=== PATIENT | female | born 1985 | race Caucasian/White ===

== ENCOUNTER → 2019-03-21 | Outpatient (CLI) | payer OTHER | LOC: MC.RAD 08:27 | DX: N63.12 Unspecified lump in the right breast, upper inner quadrant (principal) ==

== ENCOUNTER → 2019-04-08 | Outpatient (CLI) | payer OTHER | LOC: MC.RAD 09:49 | DX: N63.10 Unspecified lump in the right breast, unspecified quadrant (principal) ==

== ENCOUNTER 2020-01-04 08:13 | Inpatient (IN) | payer OTHER ==
[2020-01-04] VITALS (38 sets, daily range): BP systolic 108–142; BP diastolic 58–86; PULSE 48–71; TEMP 98–98.3
[~2020-01-04] VITALS: Ht 162.6 cm; Wt 61.4 kg
--- NOTE | 2020-01-04 09:50 | NUR ---
PATIENT TO LR6 FOR INDUCTION. PATIENT CHANGED INTO GOWN, ON EFM, VITALS OBTAINED, ASSESMENT COMPLETE, IV STARTED, CONSENTS SIGEND. PATIENT HERE WITH AT BEDSIDE. PATIENT DENIES CONTRACTIONS, BLEEDING OR LEAKING OF FLUID
[2020-01-04 10:36] LABS: BASO % 0.3 % (0.0-2.0); EOS # 0.1 (0.0-0.7); EOS % 0.8 % (0-4.0); GRAN # 5.5 (1.4-6.5); GRAN % 69.8 % (42.2-75.2); HEMATOCRIT 37.2 % (37.0-47.0); HEMOGLOBIN 12.9 g/dl (12.5-16.0); LYMPH # 1.8 (1.2-3.4); LYMPH % 22.5 % (20.0-51.0); MEAN CELL VOLUME 90 fl (80.0-100.0); MEAN CORPUSCULAR HEMOGLOBIN 31 pg (27.0-31.0); MEAN CORPUSCULAR HGB CONC 35 g/dl (33.0-37.0); MEAN PLATELET VOLUME 12.2 fl (7.4-10.4); MONO # 0.5 (0.1-0.6); MONO % 6.2 % (1.7-9.3); PLATELET COUNT 186 K/mm3 (130-400); RED BLOOD COUNT 4.13 M/mm3 (4.10-5.30); REDCELL DISTRIBUTION WIDTH-CV 13.6 % (11.5-14.5)
[2020-01-04] MEDS ORDERED: PRENATAL (12:08)
--- NOTE | 2020-01-04 18:30 | NUR ---
1830 ZOFRAN 4MG IVP FOR C/O NAUSEA. TURNED TO LEFT LATERAL FOR POSITION CHANGE.
--- NOTE | 2020-01-04 18:35 | NUR ---
183 FHT BASELINE 130 WITH DECREASE TO 80'S BETWEEN CONTRACTIONS. SVE 3/90/0. TO LEFT SIDE WITH NO RESOLVE. 1839 PIT OFF. TURNED TO RIGHT SIDE. DR WALKER NOTIFIED OF DECELS AND SVE AND PIT OFF. DECELS RESOLVING NOW. FHTS BASELINE 150'S WITH DECREASED VARIABLITY. RESTING ON RIGHT SIDE. IV BOLUS GIVEN.
--- NOTE | 2020-01-04 19:15 | NUR ---
1915 TURNED FROM RIGHT LATERAL TO LEFT LATERAL FOR POSITION CHANGE. FHT BASELINE 120'S WITH IMMEDIATE DECEL TO 90'S AFTER POSITION CHANGE. TURNED BACK TO RIGHT LATERAL WITH IMMEDIATE RETURN TO BASELINE.
--- NOTE | 2020-01-04 19:28 | NUR ---
1927 PITOCIN RESTARTED AT 2MU/MIN. 1934 DR WALKER HERE. SVE /0. SAT UP IN HIGH FOWLERS. VERY COMFORTABLE.
--- NOTE | 2020-01-04 20:30 | NUR ---
2029 COMPLETE DILITATION. INSTRUCTED TO PUSH WITH CONTRACTIONS. 2034 DR WALKER CALLED IN FOR UPDATE AND REPORT GIVEN PT COMPLETE AND BEGINNING TO PUSH.
--- NOTE | 2020-01-04 21:04 | NUR ---
2103 DR WALKER CALLED TO COME TO DELIVERY. READIED FOR DEL. OPEN MOUTH GENTLE PUSHES WITH CONTRACTIONS.
--- NOTE | 2020-01-04 21:15 | NUR ---
2114 DR WALKER HERE. 2119 DELIVERY VIABLE MALE OVER 2ND DEGREE LAC WITH 5//9 APGARS. IV CONTS TO INFUSE.
--- NOTE | 2020-01-04 23:25 | NUR ---
2055 IV TO INT. EPID CATH DC'D. UP TO BR WITH ASSIST. UNABLE TO VOID. PERICARE DONE. TO 214 PER W/C. JUSTIN WELL. ICE TO PERINEUM.
[2020-01-05 01:30] VITALS: BP 139/81; PULSE 57; TEMP 98.4
[2020-01-05 05:00] VITALS: BP 113/78; PULSE 56; TEMP 97.9
[2020-01-05 07:20] VITALS: BP 114/71; PULSE 68; TEMP 97.7
[2020-01-05 17:25] VITALS: BP 123/7; PULSE 68; TEMP 97.8
[2020-01-05 19:30] VITALS: BP 118/71; PULSE 69; TEMP 98.6
[2020-01-06] MEDS ORDERED: PERCOCET 325 MG1 TA2 PO (11:08)
[2020-01-06] MEDS ORDERED: IBU800 M1 PO (11:08)
== END 2020-01-06 11:40 | disposition home or self-care (01) | DRG 807 ==
LOC: OB 08:13 → LDR 10:08 → OB 10:08
PROVIDERS: ADMIT Student in an Organized Health Care Education/Training Program
PROC: 10E0XZZ Delivery of Products of Conception, External Approach (ICD-10-PCS; principal; 2020-01-04)
PROC: 0KQM0ZZ Repair Perineum Muscle, Open Approach (ICD-10-PCS; 2020-01-04)
PROC: 10907ZC Drainage of Amniotic Fluid, Therapeutic from Products of Conception, Via Natural or Artificial Opening (ICD-10-PCS; 2020-01-04)
PROC: 3E033VJ Introduction of Other Hormone into Peripheral Vein, Percutaneous Approach (ICD-10-PCS; 2020-01-04)
PROC: 3E0P7VZ Introduction of Hormone into Female Reproductive, Via Natural or Artificial Opening (ICD-10-PCS; 2020-01-04)
DX: O40.3XX0 Polyhydramnios, third trimester, not applicable or unspecified (principal); Z37.0 Single live birth; O26.893 Other specified pregnancy related conditions, third trimester; O69.89X0 Labor and delivery complicated by other cord complications, not applicable or unspecified; O70.1 Second degree perineal laceration during delivery; O36.5930 Maternal care for other known or suspected poor fetal growth, third trimester, not applicable or unspecified; Z3A.39 39 weeks gestation of pregnancy; Z67.91 Unspecified blood type, Rh negative
CPT/HCPCS: J0595; J2405; J2590; J7120

== ENCOUNTER → 2020-01-07 | Outpatient (CLI) | payer OTHER ==
[~2020-01-07] MED LIST: IBU800 M1 PO; PERCOCET 325 MG1 TA2 PO; PRENATAL
--- NOTE | 2020-01-07 13:04 | NUR ---
Pt, Caro Arevalo, presents with 3 day old baby boy, Jerome Arevalo, and her spouse Waldemar, for an outpatient consult as Jerome had feeding difficulties last noc and needed supplementing. Jerome was born on 01/04/2018 and weighed 6#11.2oz (3040 gms). He had a brief stay in the NICU for low blood gulcose but nursed well through that. Jerome was discharged yesterday and weighed 6#6oz (2880 gms). Today his weight is 6#1.9oz (2776 gms). He has had adquate voids and stools thus far. He was supplemented 20-30ml x4 feedings in the noc because he was not nursing well, but not content either. After approx 10 min per breast Jerome had a weight gain of 2gms. Jerome latches easily but get passive without milk flow. Pt's breast are just starting to make changes, so anticpate volume in the next 24-48 hours that will make easier. Family is receptive to SNS, equipment provided with instruction, assistance for use and cleaning. Jerome latches easily, takes a total of 23ml formula and has an addition 3ml breastmilk. Total intake is 28ml per post feed weight. POC: continue q 2-3 hours with use of SNS. Offer 24-36ml per feeding. Wean volume of supplement as milk supply builds. F/U: Dr. Avila tomorrow (01/08/20 @ 1330) for first well baby exam and with this LC as needed for guidance. Questions invited and answered.
== END ==
LOC: LAC 09:55
DX: Z39.1 Encounter for care and examination of lactating mother (principal); Z71.89 Other specified counseling

== ENCOUNTER → 2020-01-12 | Outpatient (CLI) | payer OTHER ==
--- NOTE | 2020-01-12 13:32 | NUR ---
Pt, Caro Arevalo, presents for follow up consult with eight day old baby boy, Jerome Arevalo and her spouse Waldemar. They were seen five days ago by this LC for concerns. Jerome was born on [birth year] and weighed 6#11.2oz (3039 gms). At our previous visit he weighed 6#1.9oz (2775 gms). He had a transfer of 5ml total from the breast and 23ml via SNS. Pt's milk supply was not yet established at that time. Today Jerome weighs 6#4.9oz (2876 gms), for a 3oz gain in 5 days. Currently Jerome breastfeeds 8x/day and is supplemented 1-1.5oz EBM (collected via Haakaa) and occassionally fomula by bottle after . At this feeding Jerome latches easily, nurses well for a few minutes then his effort slows. Pt stimulates him, compresses the breast and tries to keep him on for 10 min. per side. After bilateral nursing he has a gain of 1.2 oz (34 ml). Pt feeds him the EBM she brought with her 0.9oz per post feed weight and the 0.9oz she collected with the Haakaa during this feeding for a total gain of 3oz. LC evaluates Jerome's suck, he has a steep palate and is content with the finger in shallow, but will allow the finger to advance and continue suckling. This may contribute to lower milk transfer. POC: Pt will discontinue use of Haakaa with feedings to allow more for Jerome to transfer. She will breastfeed, supplement about 2oz by bottle, and then pump after. F/U: After 24 hours using the above plan, pt will report data to this LC and decide adjustments to plan. Questions invited and answered.
== END ==
LOC: LAC 13:08
DX: Z39.1 Encounter for care and examination of lactating mother (principal); Z71.89 Other specified counseling

== ENCOUNTER → 2020-01-15 | Outpatient (CLI) | payer OTHER ==
--- NOTE | 2020-01-15 13:08 | NUR ---
Pt, Caro Arevalo, presents for follow-up consult with 11 day old baby boy, Jerome Arevalo, and her spouse Waldemar. Jerome is being followed for slow weight gain and low milk transfer. Jerome was born on [birth year] and weighed 6#11.2oz (3039 gms). At our consult three days ago he weighed 6#4.9oz (2860 gms) which was a weight gain of 3oz over 5 days. They were advised to increase his supplement to 2oz p and add pumping after vs use of Haakaa with feedings. Today Jerome weighs 6#12.6oz (3080 gms), for a gain of 7.7oz over 3 days. Caro is collecting about 1.75oz with pumping over the last 5 collections. After Jerome has a weight gain of 1.6oz (44 gms). He does tend to loose interest and come off the breast in less than 10 min. Jerome is supplemented about 1.5oz EBM by bottle. Impression: Low milk transfer as evidenced by the increased collections pt is getting with her breast pump. POC: Consider continuation of current feeding plan with breast/bottle 2 oz/pumping at each feeding; reducing the bottle/pumping to every other feeding; continue the current feeding plan but reduce the supplemented volume to 1oz to manuel Cano and see if he will work harder/longer at feedings. Pt and spouse recognize the desire to shift away from the extra work load but to ensure Jerome continues to gain weight and pt continues to improve milk volume. F/U: Dr. Avila on SundayJanuary 20. Possible consult with this LC on SundayJanuary 18 depending on how change in feeding plan works. By telephone or email as needed.
== END ==
LOC: LAC 12:47
DX: Z39.1 Encounter for care and examination of lactating mother (principal); Z71.89 Other specified counseling

== ENCOUNTER → 2021-04-22 | Outpatient (CLI) | payer OTHER | LOC: ZCOL.LAB 04:33 | DX: Z20.822 Contact with and (suspected) exposure to COVID-19 (principal) ==

== ENCOUNTER 2024-04-15 06:21 | Inpatient (IN) | payer OTHER ==
[2024-04-15] VITALS (52 sets, daily range): BP systolic 95–149; BP diastolic 50–96; PULSE 47–82; TEMP 97.4–98.2
[~2024-04-15] VITALS: Ht 161.3 cm; Wt 67.7 kg
[2024-04-15] MEDS ORDERED: LR & Oxytocin 500 ML IV SCH (06:45)
[2024-04-15] MEDS ORDERED: LR 1,000 ML IV SCH (06:45)
--- NOTE | 2024-04-15 07:41 | NUR ---
RN DISCUSSES POC WITH PT AND SPOUSE. PT VERBALIZES UNDERSTANDING AND HAS NO QUESTIONS AT THIS TIME.
--- NOTE | 2024-04-15 07:42 | NUR ---
0654 PT ARRIVES ON UNIT FOR SCHEDULED ELECTIVE INDUCTION OF LABOR. RN ORIENTS PT TO ROOM AND DISCUSSES POC. PT VERBALIZES UNDERSTANDING AND DENIES ANY LOF, DFM, VB, STRONG/REGULAR CTX. PT STATES SHE STARTED HAVING BACK PAIN LAST NIGHT. PT DENIES ANY COMPLICATIONS WITH CURRENT AND PREVIOUS DELIVERIES.
[2024-04-15 07:54] LABS: BASO % 0.1 % (0.0-2.0); EOS # 0.1 K/mm3 (0.0-0.7); EOS % 1.1 % (0.0-4.0); GRAN # 5.7 K/mm3 (1.4-6.5); GRAN % 69.3 % (42.2-75.2); HEMATOCRIT 37.2 % (37.0-47.0); HEMOGLOBIN 12.5 g/dl (12.5-16.0); LYMPH % 23.9 % (20.0-51.0); MEAN CELL VOLUME 92 fl (80.0-100.0); MEAN CORPUSCULAR HEMOGLOBIN 31 pg (27-31); MEAN CORPUSCULAR HGB CONC 34 g/dl (33.0-37.0); MEAN PLATELET VOLUME 11.3 fl (7.4-10.4); MONO # 0.4 K/mm3 (0.1-0.6); MONO % 4.9 % (1.7-9.3); PLATELET COUNT 212 K/mm3 (130-400); RED BLOOD COUNT 4.03 M/mm3 (4.10-5.30); REDCELL DISTRIBUTION WIDTH-CV 14.1 % (11.5-14.5)
--- NOTE | 2024-04-15 09:11 | NUR ---
0910 CALL TO [facility] G[facility]IA FOR EPIDURAL PLACEMENT PER REQUEST BY PT. LAND TITLE EXAMINER UPDATED ON PT HISTORY, INDUCTION, SVE. LAND TITLE EXAMINER STATES SHE WILL BE ON UNIT SHORTLY FOR PLACEMENT.
[2024-04-15] MEDS ORDERED: ROPivacaine PF 0.2% 200 ML IV ONE (09:29)
[2024-04-15] MEDS ORDERED: diphenhydrAMINE 50 MG/ML 1 ML VIAL IV PRN (10:00)
[2024-04-15] MEDS ORDERED: ePHEDrine 50 MG/10 ML VIAL IV PRN (10:00)
[2024-04-15] MEDS ORDERED: Ondansetron 4 MG/2 ML VIAL IV PRN ×2 (10:00→20:45)
[2024-04-15] MEDS ORDERED: diphenhydrAMINE 25 MG CAP PO PRN (10:00)
[2024-04-15] MEDS ORDERED: Naloxone 0.4 MG/ML VIAL IV PRN ×2 (10:00→20:45)
--- NOTE | 2024-04-15 10:23 | NUR ---
PT REQUESTING EPIDURAL AT THIS TIME, PT BREATHING THRU CTX. VENDING MACHINE ASSEMBLER CALLED AND NOTIFIED OF PT REQUEST. IVFB STARTED
--- NOTE | 2024-04-15 10:31 | NUR ---
PT SITTING ON SIDE OF BED FOR EPIDURAL PLACEMENT. RN AND CLIENT BUSINESS MANAGER BEDSIDE. PT TOLERATED PROCEDURE WELL.
--- NOTE | 2024-04-15 12:44 | NUR ---
PT STATES SHE IS DIZZY AND EXPERIENCING NAUSEA. RN TURNS PT TO LEFT SIDE, PROVIDES COLD WASH CLOTH, ASSESSES BP AND FHTs, SVE PERFORMED, ZOFRAN GIVEN. AFTER 2-3 MIN PATIENT STATES SHE IS STARTING TO FEEL BETTER.
--- NOTE | 2024-04-15 16:17 | NUR ---
RN BEDSIDE; POSITION CHANGED. RN REMAINS BEDSIDE DISCUSSING POC AND ASSESSING FHTS
--- NOTE | 2024-04-15 16:19 | NUR ---
RN REMAINS BEDSIDE, SVE PERFORMED. ABDOMEN PALPATED SOFT IN BETWEEN CTX. PITOCIN DECREASED TO 16. RN DISCUSSING INTERVENTIONS WITH PT AND SPOUSE. PT VERBALIZES UNDERSTANDING.
--- NOTE | 2024-04-15 16:45 | NUR ---
RN BEDSIDE ASSESSING FHTS. RN ASSISTS PT WITH POSITION CHANGES. PT STATES SHE FEELS RECTAL PRESSURE WITH CTX.
--- NOTE | 2024-04-15 17:07 | NUR ---
RN BEDSIDE PERFORMING SVE AND ASSISTING PT WITH POSITION CHANGES.
--- NOTE | 2024-04-15 18:05 | NUR ---
RN REMAINS BEDSIDE
--- NOTE | 2024-04-15 18:08 | NUR ---
SVE PERFORMED, POSITION CHANGED, MD BEDSIDE
--- NOTE | 2024-04-15 18:10 | NUR ---
DENISE KWAN BEDSIDE ASSESSING PT. MD AND RN ASSIST PT TO HANDS AND KNEES. RN REMAINS BEDSIDE.
--- NOTE | 2024-04-15 18:34 | NUR ---
DENISE KWAN BEDSIDE, RN X2 REMAIN BEDSIDE.
--- NOTE | 2024-04-15 18:36 | NUR ---
1815 SVE PERFORMED BY DENISE KWAN AND PT REPOSITIONED. PITOCIN OFF PER MD ORDER 181 SCALP ELECTRODE PLACED BY 181 PT MOVED TO RIGHT LATERAL WITH LEG IN STIRRUP. 181 O2 PLACED PER VERBAL ORDER FROM . 1822 MD OUT OF ROOM
[2024-04-15] MEDS ORDERED: Chloroprocaine PF 3% (30 MG/ML) 20 ML VIAL ONE (19:12)
[2024-04-15] MEDS ORDERED: Methylergonovine 0.2 MG/ML 1 ML AMPUL ONE (19:18)
[2024-04-15] MEDS ORDERED: Ondansetron 4 MG/2 ML VIAL ONE (19:21)
[2024-04-15] MEDS ORDERED: Oxytocin 10 UNITS/ML VIAL ONE (19:21)
[2024-04-15] MEDS ORDERED: Phenylephrine 10 MG/ML VIAL ONE (19:21)
--- NOTE | 2024-04-15 19:23 | NUR ---
183- GOODPASTURE AT BEDSIDE. SVE UNCHANGED. PATIENT REPOSITIONED IN [facility]. PITOCIN TURNED BACK ON PER GOODPASTURE. 1853- GOODPASURE AT BEDSIDE. SVE UNCHANGED. PATIENT IN [facility]. PITOCIN INCREASED TO 10 PER GOODPASTURE. 1906- PATIENT REPOSITIONED TO LEFT LATERAL WITH RIGHT LEG IN [facility]. 1909- GOODPASTURE AT BEDSIDE. 1910- PITOCIN TURNED OFF PER GOODPASTURE. SVE UNCHANGED. PATIENT PREPPED FOR . 1921- PATIENT REMOVED FROM MONITORS. TRANSFERRED TO OR VIA HOSPITAL BED.
[2024-04-15] MEDS ORDERED: Ketorolac 30 MG/ML VIAL ONE (19:37)
[2024-04-15] MEDS ORDERED: Tranexamic Acid 1,000 MG/10 ML VIAL ONE (19:39)
[2024-04-15] MEDS ORDERED: oxyCODONE/Acetaminophen 5-325 MG TAB PO PRN (20:45)
[2024-04-15] MEDS ORDERED: Magnes Hydrox (MOM) 80 MG/ML 30 ML CUP PO PRN (20:45)
[2024-04-15] MEDS ORDERED: LR 1,000 ML IV PRN (20:45)
[2024-04-15] MEDS ORDERED: Measles/Mumps/Rubella Virus Vaccine Live w Diluent 0.5 ML VIAL SQ SCH (20:45)
[2024-04-15] MEDS ORDERED: Loratadine 10 MG TAB PO PRN (20:45)
[2024-04-15] MEDS ORDERED: Tdap Vaccine 0.5 ML SYRINGE IM SCH (20:45)
[2024-04-15] MEDS ORDERED: traZODone 50 MG TAB PO PRN (21:00)
[2024-04-15] MEDS ORDERED: Acetaminophen 500 MG TAB PO ONE (22:15)
[2024-04-15] MEDS ORDERED: oxyCODONE 5 MG TAB PO ONE (22:15)
[2024-04-15] MEDS ORDERED: Morphine 4 MG/ML VIAL IV PRN ×2 (22:15→23:15)
[2024-04-16] VITALS: BP 112/74; PULSE 61; TEMP 61
[2024-04-16 02:10] VITALS: BP 121/65; PULSE 63; TEMP 98.1
[2024-04-16] MEDS ORDERED: Ibuprofen 800 MG TAB PO SCH (02:31)
--- NOTE | 2024-04-16 05:00 | NUR ---
0500- PATIENT ABLE TO LIFT BILATERAL LOWER EXTREMITIES. PATIENT SITTING ON EDGE OF BED. EPIDURAL CATHETER REMOVED WITH TIP INTACT. 0510- PATIENT AMBULATORY TO RESTROOM FOLLOWING DELIVERY. CASTILLO CATHETER REMOVED. PERICARE PROVIDED. [facility] GOWN, UNDERWEAR AND PAD APPLIED. 0520- PATIENT AMBULATORY TO BED. PLAN OF CARE EXPLAINED TO PATIENT AND SPOUSE. QUESTIONS INVITED AND ANSWERED.
[2024-04-16 07:00] VITALS: BP 129/86; PULSE 78; TEMP 97.7
[2024-04-16] MEDS ORDERED: Sennosides/Docusate 8.6-50 MG TAB PO SCH (08:00)
--- NOTE | 2024-04-16 09:31 | NUR ---
Initial visit; Mom thanked Clinical Technologist for offering congratulations and God's blessings for the of her son. Clinical Technologist thanked her for choosing [facility].
[2024-04-16 11:25] VITALS: BP 121/69; PULSE 66; TEMP 98.4
[2024-04-16] MEDS ORDERED: oxyCODONE/Acetaminophen 5-325 MG TAB PO PRN (13:45)
[2024-04-16 15:30] VITALS: BP 132/79; PULSE 69; TEMP 97.7
[2024-04-16 20:20] VITALS: BP 126/71; PULSE 78; TEMP 99.5
[2024-04-17 06:37] VITALS: BP 118/70; PULSE 68; TEMP 97.9
[2024-04-17] MEDS ORDERED: PERCOCET 325 MG1 TA2 PO (08:33)
[2024-04-17 16:30] VITALS: BP 133/75; PULSE 79; TEMP 98.6
[2024-04-17 20:10] VITALS: BP 126/74; PULSE 70; TEMP 99.3
[2024-04-17] MEDS ORDERED: Ondansetron 4 MG TAB PO PRN (22:15)
[2024-04-18] MEDS ORDERED: Omeprazole 20 MG **** subs to Pantoprazole 40 MG PO SCH (08:18)
[2024-04-18 08:49] VITALS: BP 120/82; PULSE 80; TEMP 97.9
--- NOTE | 2024-04-18 10:02 | NUR ---
PT GIVEN BOTH WRITTEN AND VERBAL DISCHARGE INSTRUCTIONS. PATIENT EDUCATED ON SIGNS AND SYMPTOMS TO LOOK OUT FOR AND REASONS TO BE SEEN BY A MEDICAL PROFESSIONAL. PT VERBALIZES UNDERSTANDING AND HAS NO QUESTIONS AT THIS TIME.
== END 2024-04-18 10:05 | disposition home or self-care (01) | DRG 788 ==
LOC: OB 06:21 → LDR 06:21 → OB 10:08
PROVIDERS: ADMIT Student in an Organized Health Care Education/Training Program
PROC: 10D00Z1 Extraction of Products of Conception, Low, Open Approach (ICD-10-PCS; principal; 2024-04-15)
PROC: 3E033VJ Introduction of Other Hormone into Peripheral Vein, Percutaneous Approach (ICD-10-PCS; 2024-04-15)
PROC: 10907ZC Drainage of Amniotic Fluid, Therapeutic from Products of Conception, Via Natural or Artificial Opening (ICD-10-PCS; 2024-04-15)
DX: O26.893 Other specified pregnancy related conditions, third trimester (principal); O62.1 Secondary uterine inertia; O99.814 Abnormal glucose complicating childbirth; O69.81X0 Labor and delivery complicated by cord around neck, without compression, not applicable or unspecified; Z67.31 Type AB blood, Rh negative; Z37.0 Single live birth; Z3A.39 39 weeks gestation of pregnancy; Z23 Encounter for immunization; O32.8XX0 Maternal care for other malpresentation of fetus, not applicable or unspecified; O76 Abnormality in fetal heart rate and rhythm complicating labor and delivery; K21.9 Gastro-esophageal reflux disease without esophagitis; O99.63 Diseases of the digestive system complicating the puerperium
CPT/HCPCS: J0690; J1885; J2210; J2270; J2371; J2401; J2405; J2590; J2795; J7120